=== PATIENT | female | born 1985 | race African-American/Black ===

== ENCOUNTER 2016-09-27 11:32 | Emergency (ER) | END 2016-09-27 14:31 | disposition left against medical advice (07) | LOC: MERGE 11:32 → EDSEX 11:32 → UCEAST 11:32 | DX: K08.89 Other specified disorders of teeth and supporting structures (principal) ==

== ENCOUNTER 2016-09-27 15:12 | Emergency (ER) | payer OTHER ==
[2016-09-27] MEDS ORDERED: Clindamycin CAP* 150 MG PO ONE (15:29)
--- NOTE | 2016-09-27 15:48 | ED ---
Throat Pain/Nasal Congestion - HPI Summary HPI Summary: Patient presents with left upper molar pain that began last night. She has had intermittent flares similar to this over the last 4 months that she has treated with salt water gargles and heating pads. She has an appointment with her dentist in four days to have the tooth extracted. She comes in today because she is worried it might be an infection. No fever, chill, N/V/D. She denies difficulty swallowing. - History of Current Complaint Time Seen by Provider: 09/27/16 15:18 Hx Obtained From: Patient Onset/Duration: Gradual Onset Severity: Moderate Associated Signs And Symptoms: Positive: Negative Cough: None - Allergies/Home Medications Allergies/Adverse Reactions: Allergies Allergy/AdvReac Type Severity Reaction Status Date / Time Acetaminophen [From Tylenol] Allergy Hives Verified 08/17/16 11:38 Ibuprofen Allergy Hives Verified 08/17/16 11:38 Naproxen [From Aleve] Allergy Swelling Verified 08/17/16 11:38 Penicillins Allergy Hives Verified 08/17/16 11:38 PMH/Surg Hx/FS Hx/Imm Hx Previously Healthy: Yes Endocrine/Hematology History: Denies: Hx Diabetes, Hx Thyroid Disease Cardiovascular History: Denies: Hx Hypertension, Hx Pacemaker/ICD Respiratory History: Denies: Hx Asthma, Hx Chronic Obstructive Pulmonary Disease (COPD) GI History: Denies: Hx Ulcer History: Denies: Hx Renal Disease Sensory History: Denies: Hx Hearing Aid Psychiatric History: Denies: Hx Panic Disorder Infectious Disease History: No Infectious Disease History: Denies: Hx Hepatitis, Hx Human Immunodeficiency Virus (HIV), Traveled Outside the [place] in Last 30 Days - Family History Known Family History: Positive: None - Social History Occupation: Employed Full-time Lives: With Family Alcohol Use: Occasionally Substance Use Type: Reports: Marijuana Substance Use Comment - Amount & Last Used: "NOT RECENTLY" Smoking Status (MU): Never Smoked Tobacco Review of Systems Negative: Fever Positive: Dental Pain. Negative: Sore Throat, Ear Ache All Other Systems Reviewed And Are Negative: Yes Physical Exam Triage Information Reviewed: Yes Vital Signs On Initial Exam: Initial Vitals Temp Pulse Resp BP Pulse Ox 99.2 F 120 20 112/69 98 09/27/16 15:14 09/27/16 15:14 09/27/16 15:14 09/27/16 15:14 09/27/16 15:14 Vital Signs Reviewed: Yes Appearance: Positive: Well-Appearing, Well-Nourished, Pain Distress - mild Skin: Positive: Warm, Skin Color Reflects Adequate Perfusion, Dry, Soft Head/Face: Positive: Normal Head/Face Inspection Eyes: Positive: EOMI, VANESA, Conjunctiva Clear ENT: Positive: Hearing grossly normal. Negative: Pharyngeal erythema, Nasal congestion, Tonsillar swelling, Tonsillar exudate Dental: Positive: Percussion Tenderness @. Negative: Dental Fracture @ Neck: Positive: Supple, Nontender, No Lymphadenopathy Respiratory/Lung Sounds: Positive: Breath Sounds Present Cardiovascular: Positive: RRR Neurological: Positive: Sensory/Motor Intact, Alert, Oriented to Person Place, Time, NV Bundle Intact Distally Psychiatric: Positive: Affect/Mood Appropriate AVPU Assessment: Alert Diagnostics - Vital Signs Vital Signs Temp Pulse Resp BP Pulse Ox 09/27/16 15:14 99.2 F 120 20 112/69 98 - Laboratory Lab Statement: Any lab studies that have been ordered have been reviewed, and results considered in the medical decision making process. EENT Course/Dx - Differential Diagnoses Differential Diagnoses: Dental Abscess, Dental Caries, Fractured Tooth, Gingivitis, David's Angina, Mastoiditis, Odontogenic Pain, Periodontic Abscess , Periodontic Disease, Post-Extraction Pain - Diagnoses Provider Diagnoses: Toothache Discharge - Discharge Plan Condition: Stable Disposition: HOME Prescriptions: Clindamycin Cap(NF) [Cleocin 300 mg Cap(NF)] 300 mg PO Q6H #27 cap Patient Education Materials: Toothache (ED) Referrals: Hermes Vaca MD [Primary Care Provider] - Additional Instructions: Please take the medication provided until it is completely gone and follow-up with your dentist as discussed on Saturday. Use tylenol and heat to control swelling and pain. Return to the emergency department if symptoms worsen.
[2016-09-27 16:24] VITALS: BP 109/67
== END 2016-09-27 16:23 | disposition home or self-care (01) ==
LOC: ED 15:12
DX: K08.89 Other specified disorders of teeth and supporting structures (principal)
CPT/HCPCS: 99282; A9270-GY

== ENCOUNTER 2016-11-11 14:46 | Day surgery (SDC) | payer OTHER ==
[2016-11-11 16:35] LABS: Hematocrit 35 % (35-47); Hemoglobin 11.5 g/dl (12.0-16.0); Mean Corpuscular HGB Conc 33 g/dl (31-36); Mean Corpuscular Hemoglobin 28 pg (27-31); Mean Corpuscular Volume 86 fL (80-97); Mean Platelet Volume 7 um3 (7.4-10.4); Red Blood Count 4.09 10^6/ul (4.0-5.4); Red Cell Distribution Width 14 % (10.5-15); White Blood Count 9.5 10^3/ul (3.5-10.8)
[2016-11-11 16:52] LABS: ALT 11 U/L (7-52); AST 14 U/L (13-39); Albumin 3.9 g/dL (3.2-5.2); Alkaline Phosphatase 48 U/L (34-104); BUN/Creatinine Ratio 8.9 (8-20); Blood Urea Nitrogen 7 mg/dL (6-24); C Reactive Protein < 1.00 mg/L (< 5.00); CO2 Carbon Dioxide 24 mmol/L (22-32); Calcium 9.4 mg/dL (8.6-10.3); EGFR African American 109.9 (>60); EGFR Non-African American 85.5 (>60); Globulin 3.2 g/dL (2-4); Glucose 89 mg/dL (70-100); Lipase 31 U/L (11.0-82.0); Potassium 3.8 mmol/L (3.5-5.0); Sodium 135 mmol/L (133-145); Total Protein 7.1 g/dL (6.4-8.9)
[2016-11-11 17:13] LABS: Anion Gap 6 mmol/L (2-11); Chloride 105 mmol/L (101-111)
--- NOTE | 2016-11-11 18:29 | RAD ---
INDICATION: , right adnexal pain. COMPARISON: There are no prior studies available for comparison. TECHNIQUE: Multiple real-time transvaginal images of the pelvis were obtained. FINDINGS: The uterus is normal in size and shape. No intrauterine gestational sac is seen. The endometrial echo measures 0.8 cm in thickness. The right ovary measured 3.0 x 2.6 x 3.0 cm. The left ovary measured 2.1 x 1.4 x 2.9 cm. There is a small 1.8 x 1.4 cm complex cyst present within the right ovary. In addition adjacent to the right ovary there is an ill-defined mass measuring 2.5 x 4.3 x 1.8 cm possibly representing an ectopic with hemorrhage. No heartbeat is seen. There is a small amount of complex free intraperitoneal fluid around the uterus. The results of this exam were called to Dr. Wisdom. IMPRESSION: NO INTRAUTERINE GESTATIONAL SAC IS SEEN. THERE IS A HYPERECHOIC MASS IN THE RIGHT ADNEXA ADJACENT TO THE RIGHT OVARY SUSPICIOUS FOR AN ECTOPIC WITH HEMORRHAGE.
[2016-11-11 19:21] LABS: Urine Bacteria Absent (Absent); Urine Bilirubin Negative (Negative); Urine Glucose Negative (Negative); Urine Nitrite Negative (Negative)
[2016-11-11] MEDS ORDERED: Bupivacaine 0.25% SDV* 30 ML ONE (19:27)
[2016-11-11] MEDS ORDERED: Propofol* 10 MG/ML 20 ML BTL IV PUSH ONE (19:33)
[2016-11-11] MEDS ORDERED: fentaNYL* 50 MCG/ML 2 ML VIAL (100 MCG VIAL) ONE ×4 (19:33→21:42)
[2016-11-11] MEDS ORDERED: Lidocaine 2% PF* 5 ML VIAL ONE (19:33)
[2016-11-11] MEDS ORDERED: oxyCODONE TAB* 5 MG TAB PO PRN (19:41)
[2016-11-11] MEDS ORDERED: PROCHLORPERAZINE INJ 5 MG/ML 2 ML VIAL IV PRN (19:41)
[2016-11-11] MEDS ORDERED: fentaNYL* 50 MCG/ML 2 ML VIAL (100 MCG VIAL) IV PRN (19:41)
[2016-11-11] MEDS ORDERED: Metoclopramide IV* 5 MG/ML 2 ML VIAL ONE (19:44)
[2016-11-11] MEDS ORDERED: Sodium Citrate/Citric Acid* 15 ML UDC ONE (19:45)
--- NOTE | 2016-11-11 20:11 | HP ---
H&P (Free Text) History and Physical: CC: RLQ pain HPI: Pt c/o RLQ pain starting this afternoon. It became about 8/10 at it's worst point. After the sono in the ED she began having some spotting but none previously. She had a + test at home. Her LMP was about 8wks ago but her cycles have been very irregular. She was not specifically trying to get but was happy with the fact that she was . Meds: Allergies: recently developed allergy to acetaminophen and ibuprofen in the past year - both cause hives and swelling lips. She had been able to take them prior to about the past year. Also allergic to penicillins. PMH: allergies as above, PSH: endoscopy with polyp removal GynHx: with 1 prior FT uncomplicated , 1 prior ectopic medically treated (uncertain which side), 1 SAB, 2TOP SocHx: Denies tobacco and alcohol use, occ Marijuana use but not recently. Exam VSS Gen: NAD CV: RRR Abd: soft, moderately tender RLQ, nondistended Ext: neg edema Sono: suspected right ruptured ectopic Labs: O+, ab neg. CBC stable with prior one. Assessment: with a suspected ruptured right ectopic . Vitals currently stable. Pt with 1 prior ectopic treated with Methotrexate in 2011. Plan: Laparoscopic removal of ectopic , possible right salpingectomy, possible laparotomy, surgery as indicated. Discussed recovery with pt: no heavy lifting x4wks. 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
[2016-11-11] MEDS ORDERED: Dexamethasone IV* 4 MG/ML 1 ML (4 MG) ONE (20:25)
[2016-11-11] MEDS ORDERED: Ondansetron INJ* 2 MG/ML VIAL ONE (20:43)
[2016-11-11] MEDS ORDERED: Phenylephrine IV* 40 MCG/ML 10 ML SYRINGE ONE (20:57)
[2016-11-11] MEDS ORDERED: oxyCODONE TAB* 5 MG TAB ONE (22:19)
[2016-11-11 22:42] VITALS: BP 128/80
--- NOTE | 2016-11-12 14:57 | OP ---
DATE OF OPERATION: 11/11/16 [facility] DATE OF : 87 SURGEON: Gloria Rene MD SURVEILLANCE SENSOR OFFICER: Rush Castanon MD ANESTHESIOLOGIST: Migue Ye MD ANESTHESIA: General endotracheal anesthesia. PRE-OP DIAGNOSES: Right ectopic , hemoperitoneum. POST-OP DIAGNOSES: Ruptured right ectopic , hemoperitoneum. OPERATIVE PROCEDURE: Laparoscopic right salpingo-oophorectomy, evacuation of hemoperitoneum. ESTIMATED BLOOD LOSS: 200 to 300 mL. SPECIMEN: Right tube and ectopic . FLUIDS: Crystalloid. DRAINS: Morris catheter with 200 mL of clear urine removed at the end of the procedure. FINDINGS: Dilated edematous right tube with blood products extruding from the end. DESCRIPTION OF PROCEDURE: After informed consent was signed, the patient was taken to the operating room where she was given general anesthesia that was found to be adequate. She was prepped and draped in the dorsal lithotomy position in Artis stirrups. A time-out was performed. A speculum was then placed into the vagina to expose the cervix and the anterior lip of the cervix was grasped with the tenaculum and the Hulka manipulator was inserted. The speculum was removed, gloves were changed, and attention was turned to the abdomen. The infraumbilical folds were grasped with an Allis clamp and injected with Marcaine with epinephrine. A 10-mm incision was then made with a scalpel and carried down to the underlying layer of fascia. The fascia was grasped with Toney clamps and incised. This incision was then extended bluntly. The trocar was then inserted and entrance to the abdominal cavity was confirmed. The abdomen was then insufflated and on inspection, the previously mentioned findings were noted. Two lateral ports were then placed, each of 5 mm. Marcaine with epinephrine was injected first followed by a 5-mm incision with the scalpel. The trocar was then entered bluntly with direct visualization. The right tube was then grasped and a LigaSure device was used to clamp, cauterize, and cut through the mesosalpinx to release the tube. The proximal end of the tube was then clamped, cauterized, and cut with the LigaSure device. The blood in the abdomen was also suctioned with suction irrigation. The camera was switched to a lateral port and a 10-mm EndoCatch bag was then inserted through the umbilical port. The right tube and ectopic was placed into the EndoCatch bag and removed from the abdominal cavity. Further irrigation and suctioning of the abdomen removed all the old blood and good hemostasis was noted. The fascial incision was closed with 0 Vicryl in a figure-of-8 suture. The skin was then closed with 4-0 Vicryl in a subcuticular fashion. Mastisol and Steri-Strips were placed. The patient was cleaned, placed back into supine position, awakened from anesthesia, and moved to the recovery room in stable condition. All counts were correct. CC: Rush Castanon MD* [id number]/[facility] #: [id number] MTDNaya
== END 2016-11-11 19:37 | disposition home or self-care (01) ==
LOC: ED 14:46 → OR 19:37
PROVIDERS: ATTEND Obstetrics & Gynecology
DX: O00.10 Tubal pregnancy without intrauterine pregnancy (principal); K66.1 Hemoperitoneum; R10.31 Right lower quadrant pain
CPT/HCPCS: 36415; 76817; 80053; 81003; 81015; 83605; 83690; 84702; 85025; 86140; 86850; 86900; 86901; 87077; 87086; 88305; 96374; 96375; 99283; A9270-GY; J1100; J2405; J2704; J3010

== ENCOUNTER 2017-05-02 19:09 | Emergency (ER) | payer SELFPAY ==
[2017-05-02] MEDS ORDERED: Ondansetron ODT TAB* 4 MG PO ONE ×2 (20:27→21:01)
[2017-05-02 20:28] VITALS: BP 121/82
--- NOTE | 2017-05-02 20:29 | UC ---
Headache HPI - HPI Summary HPI Summary: Headache for 2 days nausea today with vomiting---did have a fever a few days ago ---cannot take pain med due to allergies - History Of Current Complaint Chief Complaint: UCHeadache Stated Complaint: HEADACHE Time Seen by Provider: 05/02/17 20:04 Hx Obtained From: Patient Hx Last Menstrual Period: 04/13/17 ?: No Onset/Duration: Sudden Onset, Lasting Days - 2, Still Present Onset Of Symptoms: Gradual Timing: Constant Character: Throbbing Location of Headache: Diffuse Aggravating Factor: Nothing Allevating Factors: Nothing Associated Signs And Symptoms: Positive: Negative - Allergies/Home Medications Allergies/Adverse Reactions: Allergies Allergy/AdvReac Type Severity Reaction Status Date / Time Acetaminophen [From Tylenol] Allergy Hives Verified 05/02/17 19:15 Ibuprofen Allergy Hives Verified 05/02/17 19:15 Naproxen [From Aleve] Allergy Swelling Verified 05/02/17 19:15 Penicillins Allergy Hives Verified 05/02/17 19:15 PMH/Surg Hx/FS Hx/Imm Hx Previously Healthy: Yes - Surgical History Surgical History: None - Family History Known Family History: Positive: None - Social History Occupation: Employed Full-time Lives: With Family Alcohol Use: None Substance Use Type: None Substance Use Comment - Amount & Last Used: "NOT RECENTLY" Smoking Status (MU): Never Smoked Tobacco Have You Smoked in the Last Year: No Review of Systems Constitutional: Negative Skin: Negative Eyes: Negative ENT: Negative Respiratory: Negative Cardiovascular: Negative Gastrointestinal: Abdominal Pain - diffuse, Vomiting Genitourinary: Negative Motor: Negative Neurovascular: Negative Musculoskeletal: Negative Neurological: Headache Psychological: Negative Is Patient Immunocompromised?: No All Other Systems Reviewed And Are Negative: Yes Physical Exam Triage Information Reviewed: Yes Appearance: Well-Appearing, No Pain Distress, Well-Nourished Vital Signs: Initial Vital Signs Temp 97.8 F 05/02/17 19:12 Pulse 102 05/02/17 19:12 Resp 12 05/02/17 19:12 Pulse Ox 100 05/02/17 19:12 Vital Signs Reviewed: Yes Eye Exam: Normal Eyes: Positive: Conjunctiva Clear ENT Exam: Normal ENT: Positive: Normal ENT inspection, Hearing grossly normal, Pharynx normal, TMs normal. Negative: Nasal congestion, Nasal drainage, Trismus, Muffled/ hoarse voice Dental Exam: Normal Neck exam: Normal Neck: Positive: Supple, Nontender, No Lymphadenopathy Respiratory Exam: Normal Respiratory: Positive: Chest non-tender, Lungs clear, Normal breath sounds, No respiratory distress Cardiovascular Exam: Normal Cardiovascular: Positive: RRR, No Murmur, Pulses Normal, Brisk Capillary Refill Abdominal Exam: Normal Abdomen Description: Positive: No Organomegaly, Soft. Negative: CVA Tenderness (R), CVA Tenderness (L) Bowel Sounds: Positive: Present Musculoskeletal Exam: Normal Musculoskeletal: Positive: Strength Intact, ROM Intact, No Edema Neurological Exam: Normal Neurological: Positive: Alert, Muscle Tone Normal Psychological Exam: Normal Skin Exam: Normal Re-Evaluation - Re-Evaluation First Eval Change: Improved - Some relief with rest and zofran--keeping down clear liquids Headache Course/Dx - Course Course Of Treatment: advance diet slowly, zofran, follow with PCP to emergency department for worsening or unresolving symptoms - Differential Dx/Diagnosis Differential Diagnosis/HQI/PQRI: Sinus Headache, Temporal Arteritis, Tension Headache, Viral Syndrome Provider Diagnoses: Acute nausea and vomiting Discharge - Discharge Plan Condition: Stable Disposition: HOME Prescriptions: Ondansetron ODT TAB* [Zofran 4 MG Odt TAB*] 4 mg PO Q6H PRN #10 tab.odt PRN Reason: Nausea/Vomiting Patient Education Materials: Acute Nausea and Vomiting (ED) Forms: *Work Release Referrals: Hermes Vaca MD [Primary Care Provider] - If Needed
== END 2017-05-02 21:10 | disposition home or self-care (01) ==
LOC: UCEAST 19:09
DX: R11.2 Nausea with vomiting, unspecified (principal); Z32.02 Encounter for pregnancy test, result negative; Z88.6 Allergy status to analgesic agent; Z88.0 Allergy status to penicillin
CPT/HCPCS: 81003; 84702; 99212; A9270-GY; G0463

== ENCOUNTER 2017-09-17 05:20 | Emergency (ER) | payer BC ==
[2017-09-17 07:50] VITALS: BP 0/0
--- NOTE | 2017-09-18 17:57 | ED ---
Fuad Torrez Angela, scribed for Shiv Goodwin MD on 09/17/17 at 0733 . Complex/Multi-Sys Presentation - HPI Summary HPI Summary: This pt is a 32 y/o female presenting to [facility] c/o sore throat x3 days. Pt reports she took 3 old antibiotics (Clindamycin) over the past 3 days. She states the last one she took was last night. She notes that her she might have tested negative for strep due to taking these antibiotics. Pt reports her throat throat is currently mild than at onset. Pt denies any fever. She denies any PMHx. - History Of Current Complaint Chief Complaint: EDThroatPain Time Seen by Provider: 09/17/17 07:17 Hx Obtained From: Patient Onset/Duration: Lasting Days, Still Present Timing: Days Severity Initially: Moderate Location: Pain At: - throat Aggravating Factor(s): nothing Alleviating Factor(s): nothing Associated Signs And Symptoms: Positive: Other - Sore throat. Negative: Fever - Allergies/Home Medications Allergies/Adverse Reactions: Allergies Allergy/AdvReac Type Severity Reaction Status Date / Time MS Acetaminophen Allergy Hives Verified 09/17/17 05:29 [From Tylenol] MS Ibuprofen [Ibuprofen] Allergy Hives Verified 09/17/17 05:29 MS Naproxen [From Aleve] Allergy Swelling Verified 09/17/17 05:29 MS Penicillins [Penicillins] Allergy Hives Verified 09/17/17 05:29 PMH/Surg Hx/FS Hx/Imm Hx Endocrine/Hematology History: Denies: Hx Diabetes, Hx Thyroid Disease Cardiovascular History: Denies: Hx Hypertension, Hx Pacemaker/ICD Respiratory History: Denies: Hx Asthma, Hx Chronic Obstructive Pulmonary Disease (COPD) GI History: Denies: Hx Ulcer History: Denies: Hx Renal Disease Sensory History: Denies: Hx Hearing Aid Psychiatric History: Denies: Hx Panic Disorder Infectious Disease History: No Infectious Disease History: Denies: Hx Hepatitis, Hx Human Immunodeficiency Virus (HIV), Traveled Outside the [place] in Last 30 Days - Family History Family History: Mother: Lupus, leukemia - Social History Alcohol Use: Occasionally Substance Use Type: Reports: Marijuana Substance Use Comment - Amount & Last Used: "NOT RECENTLY" Smoking Status (MU): Never Smoked Tobacco Have You Smoked in the Last Year: No Review of Systems Negative: Fever, Chills Positive: Sore Throat All Other Systems Reviewed And Are Negative: Yes Physical Exam - Summary Physical Exam Summary: VITAL SIGNS: Reviewed. GENERAL: Patient is a well-developed and nourished female who is lying comfortable in the stretcher. Patient is not in any acute respiratory distress. HEAD AND FACE: No signs of trauma. No ecchymosis, hematomas or skull depressions. No sinus tenderness. EYES: PERRLA, EOMI x 2, No injected conjunctiva, no nystagmus. EARS: Hearing grossly intact. Ear canals and tympanic membranes are within normal limits. MOUTH: Erythema in the throat. NECK: Supple, trachea is midline, no adenopathy, no JVD, no carotid bruit, no c- spine tenderness, neck with full ROM. CHEST: Symmetric, no tenderness at palpation LUNGS: Clear to auscultation bilaterally. No wheezing or crackles. CVS: Regular rate and rhythm, S1 and S2 present, no murmurs or gallops appreciated. ABDOMEN: Soft, non-tender. No signs of distention. No rebound no guarding, and no masses palpated. Bowel sounds are normal. EXTREMITIES: FROM in all major joints, no edema, no cyanosis or clubbing. NEURO: Alert and oriented x 3. No acute neurological deficits. Speech is normal and follows commands. SKIN: Dry and warm Triage Information Reviewed: Yes Vital Signs On Initial Exam: Initial Vitals Temp Pulse Resp BP Pulse Ox 97.7 F 77 18 115/77 97 09/17/17 05:26 09/17/17 05:26 09/17/17 05:26 09/17/17 05:26 09/17/17 05:26 Vital Signs Reviewed: Yes Diagnostics - Vital Signs Vital Signs Temp Pulse Resp BP Pulse Ox 09/17/17 05:26 97.7 F 77 18 115/77 97 - Laboratory Lab Results: Lab Results 09/17/17 Range/Units 06:22 Group A Strep Rapid Negative (Negative) Lab Statement: Any lab studies that have been ordered have been reviewed, and results considered in the medical decision making process. Complex Multi-Symp Course/Dx Assessment/Plan: This pt is a 32 y/o female presenting to [facility] c/o sore throat x3 days. Pt reports she took 3 old antibiotics (Clindamycin) over the past 3 days. She states the last one she took was last night. She notes that her she might have tested negative for strep due to taking these antibiotics. Pt reports her throat throat is currently mild than at onset. Pt denies any fever. She denies any PMHx. Test results shows rapid strep is negative. However the pt took 3 clindamycin tablets which may have impaired the testing. Since in the household there is a positive strep, I will give the pt a prescription for azithromycin if her sore throat symptoms worsen. She will be discharged to home with follow up from her PCP. Pt is hemodynamically stable, alert and oriented x3. - Diagnoses Provider Diagnoses: Pharyngitis Discharge - Discharge Plan Condition: Stable Disposition: HOME Prescriptions: Azithromyxin GRACE (NF) [Z-Grace (Zithromax) 250 mg tabs #6] 2 tab PO .TODAY, THEN 1 DAILY #6 tab Patient Education Materials: Pharyngitis (ED) Forms: *Work Release Referrals: [facility] PHYSICIAN REFERRAL [Outside] - 1 Week No Primary Care Phys,NOPCP [Primary Care Provider] - Additional Instructions: Please follow up with your primary care provider. RETURN TO THE ED FOR ANY WORSENING SYMPTOMS. The documentation as recorded by the Fuad vazquez Angela accurately reflects the service I personally performed and the decisions made by me, Shiv Goodwin MD.
== END 2017-09-17 07:48 | disposition home or self-care (01) ==
LOC: ED 05:20
DX: J02.9 Acute pharyngitis, unspecified (principal)
CPT/HCPCS: 87651; 99282

== ENCOUNTER 2018-01-26 16:09 | Emergency (ER) | payer SELFPAY ==
[2018-01-26 16:18] VITALS: BP 125/85
--- NOTE | 2018-01-26 16:36 | UC ---
Eye Complaint HPI - HPI Summary HPI Summary: Developed pain, swelling, redness in R upper eyelid about 2 days ago. Has tried some warm packs without relief. 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 - History of Current Complaint Chief Complaint: UCEye Stated Complaint: EYE COMPLAINT Time Seen by Provider: 01/26/18 16:22 Hx Obtained From: Patient Hx Last Menstrual Period: 01/13/18 ?: No Onset/Duration: Gradual Onset, Lasting Days Timing: Constant Severity Initially: Mild Severity Currently: Moderate Pain Intensity: 9 Location of Injury: Eye Lid (upper) Character: Dull Aggravating Factor(s): Blinking Alleviating Factor(s): Darkness Associated Signs And Symptoms: Positive: Drainage (Clear) - Allergies/Home Medications Allergies/Adverse Reactions: Allergies Allergy/AdvReac Type Severity Reaction Status Date / Time acetaminophen [From Tylenol] Allergy Intermediate Hives Verified 01/26/18 16:21 ibuprofen Allergy Intermediate Hives Verified 01/26/18 16:21 naproxen Allergy Intermediate Swelling Verified 01/26/18 16:21 Penicillins Allergy Intermediate Hives Verified 01/26/18 16:21 PMH/Surg Hx/FS Hx/Imm Hx - Additional Past Medical History Additional PMH: vitiligo, ectopic Previously Healthy: Yes - Surgical History Surgical History: Yes Surgery Procedure, Year, and Place: ectopic - Family History Known Family History: Positive: Other Family History: Mother: Lupus, leukemia - Social History Occupation: Employed Full-time Alcohol Use: Occasionally Substance Use Type: Marijuana Substance Use Comment - Amount & Last Used: "NOT RECENTLY" Smoking Status (MU): Never Smoked Tobacco Have You Smoked in the Last Year: No Review of Systems Constitutional: Negative Skin: Other - redness, swelling R upper lid Eyes: Negative ENT: Negative Respiratory: Negative Cardiovascular: Negative Gastrointestinal: Negative Genitourinary: Negative Motor: Negative Neurovascular: Negative Musculoskeletal: Negative Neurological: Negative Psychological: Negative Is Patient Immunocompromised?: No All Other Systems Reviewed And Are Negative: Yes Physical Exam Triage Information Reviewed: Yes Appearance: Well-Appearing, Well-Nourished, Pain Distress - mild Vital Signs: Initial Vital Signs Temp 98.1 F 01/26/18 16:14 Pulse 78 01/26/18 16:14 Resp 15 01/26/18 16:14 BP 125/85 06/17/18 16:14 Pulse Ox 98 01/26/18 16:14 Vital Signs Reviewed: Yes Eye Exam: Other - PERRL, EOMI, clear drainage from R eye, notable swelling and redness of upper lid. Visible stye pointing at margin of R upper lid. Eyes: Positive: Conjunctiva Clear ENT Exam: Normal ENT: Positive: Normal ENT inspection, Hearing grossly normal, Pharynx normal, TMs normal Dental Exam: Normal Neck exam: Normal Neck: Positive: Supple, Nontender, No Lymphadenopathy Respiratory Exam: Normal Respiratory: Positive: Chest non-tender, Lungs clear, Normal breath sounds, No respiratory distress, No accessory muscle use Cardiovascular Exam: Normal Cardiovascular: Positive: RRR, No Murmur Neurological Exam: Normal Neurological: Positive: Alert Psychological Exam: Normal Skin Exam: Other - R upper eye stye Eye Complaint Course/Dx - Course Course Of Treatment: Pt very much wants oral antibiotics since her symptoms haven't started improving yet, we discussed the pathophysiology of abscess formation, that her infection appears totally local at this point and that drainage is the most important part of recovery. - Differential Dx/Diagnosis Provider Diagnoses: R eye upper eyelid stye Discharge - Sign-Out/Discharge Documenting (check all that apply): Discharge/Admit/Transfer - Discharge Plan Condition: Stable Disposition: HOME Prescriptions: Erythromycin OPTH OINT* [Erythromycin 0.5% OPTH OINT*] 1 applic RIGHT EYE TID # 1 ophth.oint Patient Education Materials: Mark (ED) Forms: *Work Release Referrals: No Primary Care Phys,NOPCP [Primary Care Provider] - Additional Instructions: Apply frequent hot compresses -- as hot as you can stand as frequently as you can stand. You may need to warm up your cloth mcfp through a compress as they tend to cool off quickly. If you develop increasing pain, fever, or visual changes, or if redness starts spreading far beyond the upper eyelid, please return here or go to the emergency department. - Billing Disposition and Condition Condition: STABLE Disposition: Home
== END 2018-01-26 16:45 | disposition home or self-care (01) ==
LOC: UCEAST 16:09
DX: H00.021 Hordeolum internum right upper eyelid (principal); Z88.6 Allergy status to analgesic agent; Z88.0 Allergy status to penicillin; Z80.6 Family history of leukemia; Z83.49 Family history of other endocrine, nutritional and metabolic diseases
CPT/HCPCS: 99212; G0463

== ENCOUNTER 2018-05-10 09:40 | Emergency (ER) | payer SELFPAY ==
[2018-05-10] MEDS ORDERED: Clotrimazole/Betamethasone CREAM* 15 GM TOPICAL ONE (10:29)
[2018-05-10 11:03] VITALS: BP 113/68
--- NOTE | 2018-05-10 16:39 | ED ---
Skin Complaint - HPI Summary HPI Summary: Patient is a 33-year-old female presenting to the ED with a complaint of "rash" to the left side body and mid back starting 2 days ago. She states the rash appeared 2 days after trying on clothes at a department store as well as 4 days after a trip to the [employer] where she was in a pool with other individuals. She denies any new animals or new environment. She has never had this rash before. She describes the rash as circular, pruritic but not painful. - History of Current Complaint Chief Complaint: EDRashSkinAbscess Time Seen by Provider: 05/10/18 09:47 Stated Complaint: RASH ON BACK AND SRTOMACH Hx Obtained From: Patient Hx Last Menstrual Period: 01/13/18 Onset/Duration: Started Hours Ago, Started Days Ago Skin Exposure Onset/Duration: Hours Ago, Days Ago Timing: Constant Onset Severity: Moderate Current Severity: Moderate Pain Intensity: 0 Pain Scale Used: 0-10 Numeric Skin Location: Discrete Character: Pruritus, Redness, Raised Aggravating Symptom(s): Nothing Associated Signs & Symptoms: Negative - Allergy/Home Medications Allergies/Adverse Reactions: Allergies Allergy/AdvReac Type Severity Reaction Status Date / Time acetaminophen [From Tylenol] Allergy Intermediate Hives Verified 05/10/18 09:45 ibuprofen Allergy Intermediate Hives Verified 05/10/18 09:45 naproxen Allergy Intermediate Swelling Verified 05/10/18 09:45 Penicillins Allergy Intermediate Hives Verified 05/10/18 09:45 Home Medications: Home Medications NK [No Home Medications Reported] 05/10/18 [History Confirmed 05/10/18] PMH/Surg Hx/FS Hx/Imm Hx Previously Healthy: Yes Endocrine/Hematology History: Denies: Hx Diabetes, Hx Thyroid Disease Cardiovascular History: Denies: Hx Hypertension, Hx Pacemaker/ICD Respiratory History: Denies: Hx Asthma, Hx Chronic Obstructive Pulmonary Disease (COPD) GI History: Denies: Hx Ulcer History: Denies: Hx Renal Disease Sensory History: Denies: Hx Hearing Aid Psychiatric History: Denies: Hx Panic Disorder - Surgical History Surgery Procedure, Year, and Place: ectopic - Immunization History Hx Pertussis Vaccination: No Immunizations Up to Date: Yes Infectious Disease History: No Infectious Disease History: Denies: Hx Hepatitis, Hx Human Immunodeficiency Virus (HIV), Traveled Outside the [place] in Last 30 Days - Family History Known Family History: Positive: None, Other Family History: Mother: Lupus, leukemia - Social History Occupation: Employed Full-time Lives: With Family Alcohol Use: Occasionally Hx Substance Use: Yes Substance Use Type: Reports: Marijuana Substance Use Comment - Amount & Last Used: "not in the last 3 weeks though" Hx Tobacco Use: Yes Smoking Status (MU): Current Some Day Smoker Have You Smoked in the Last Year: No Review of Systems Constitutional: Negative Negative: Fever, Chills, Fatigue, Skin Diaphoresis Negative: Palpitations, Chest Pain Negative: Shortness Of Breath, Cough Genitourinary: Negative Positive: no symptoms reported, see HPI Positive: Other - annular, slightly raised erythematous edge lesions with salmon center with scaling plaque Neurological: Negative All Other Systems Reviewed And Are Negative: Yes Physical Exam Triage Information Reviewed: Yes Vital Signs On Initial Exam: Initial Vitals Temp Pulse Resp BP Pulse Ox 98.0 F 79 16 108/84 100 05/10/18 09:43 05/10/18 09:43 05/10/18 09:43 05/10/18 09:43 05/10/18 09:43 Vital Signs Reviewed: Yes Appearance: Positive: Well-Appearing, Well-Nourished Skin: Positive: Warm, Skin Color Reflects Adequate Perfusion, Other - annular, slightly raised erythematous edge lesions with salmon center with scaling plaque Head/Face: Positive: Normal Head/Face Inspection Eyes: Positive: EOMI, VANESA, Conjunctiva Clear Neck: Positive: Supple Respiratory/Lung Sounds: Positive: Clear to Auscultation, Breath Sounds Present Cardiovascular: Positive: RRR, Pulses are Symmetrical in both Upper and Lower Extremities Bowel Sounds: Positive: Present Musculoskeletal: Positive: Normal, Strength/ROM Intact Neurological: Positive: Speech Normal Psychiatric: Positive: Normal, Affect/Mood Appropriate AVPU Assessment: Alert Diagnostics - Vital Signs Vital Signs Temp Pulse Resp BP Pulse Ox 05/10/18 11:02 99.3 F 63 16 113/68 99 05/10/18 09:43 98.0 F 79 16 108/84 100 - Laboratory Lab Statement: Any lab studies that have been ordered have been reviewed, and results considered in the medical decision making process. Course/Dx - Course Course Of Treatment: On physical examination, there is an annular, slightly scaling raised edge erythematous lesion to the left side body with a salmon colored center also with 2 similar lesions to the back appearing the same. He' s appear to be tinea corporis or ringworm. She is given Lotrisone cream to be used twice daily for relief. - Diagnoses Provider Diagnoses: Ringworm of body Discharge - Sign-Out/Discharge Documenting (check all that apply): Patient Departure - Discharge Plan Condition: Stable Disposition: HOME Patient Education Materials: Tinea Corporis (ED) Referrals: No Primary Care Phys,NOPCP [Primary Care Provider] - Additional Instructions: Apply cream to affected areas 3x daily x 3 days then twice daily until area is diminished - Billing Disposition and Condition Condition: STABLE Disposition: Home
== END 2018-05-10 11:02 | disposition home or self-care (01) ==
LOC: ED 09:40
DX: B35.4 Tinea corporis (principal); F17.200 Nicotine dependence, unspecified, uncomplicated; Z88.0 Allergy status to penicillin; Z88.6 Allergy status to analgesic agent
CPT/HCPCS: 99282; A9270-GY

== ENCOUNTER 2018-05-12 07:54 | Emergency (ER) | payer SELFPAY ==
--- NOTE | 2018-05-12 08:07 | ED ---
Throat Pain/Nasal Congestion - HPI Summary HPI Summary: A 33 y/o F presents to ED with c/o swelling and tenderness to R-side of jaw, at her bridge, onset a few days ago and worsening. She believes it might be the start of an abscess. Pt had the bridge done in 2012 in [place], [place]. Allergies discussed. Denies PMHx. - History of Current Complaint Chief Complaint: EDDentalPain Time Seen by Provider: 05/12/18 08:04 Hx Obtained From: Patient Onset/Duration: Gradual Onset, Lasting Days, Still Present Severity: Moderate - 4/10 pain Associated Signs And Symptoms: Positive: Negative Cough: None - Allergies/Home Medications Allergies/Adverse Reactions: Allergies Allergy/AdvReac Type Severity Reaction Status Date / Time acetaminophen [From Tylenol] Allergy Intermediate Hives Verified 05/12/18 07:59 ibuprofen Allergy Intermediate Hives Verified 05/12/18 07:59 naproxen Allergy Intermediate Swelling Verified 05/12/18 07:59 Penicillins Allergy Intermediate Hives Verified 05/12/18 07:59 PMH/Surg Hx/FS Hx/Imm Hx Previously Healthy: Yes Endocrine/Hematology History: Denies: Hx Diabetes, Hx Thyroid Disease Cardiovascular History: Denies: Hx Hypertension, Hx Pacemaker/ICD Respiratory History: Denies: Hx Asthma, Hx Chronic Obstructive Pulmonary Disease (COPD) GI History: Denies: Hx Ulcer History: Denies: Hx Renal Disease Sensory History: Denies: Hx Hearing Aid Psychiatric History: Denies: Hx Panic Disorder - Surgical History Surgery Procedure, Year, and Place: ectopic Infectious Disease History: No Infectious Disease History: Denies: Hx Hepatitis, Hx Human Immunodeficiency Virus (HIV), Traveled Outside the US in Last 30 Days - Family History Known Family History: Positive: None, Other Family History: Mother: Lupus, leukemia - Social History Occupation: Unemployed - OTHER Lives: Alone Alcohol Use: Occasionally Hx Substance Use: Yes Substance Use Type: Reports: Marijuana Substance Use Comment - Amount & Last Used: "not in the last 3 weeks though" Hx Tobacco Use: Yes Smoking Status (MU): Current Some Day Smoker Have You Smoked in the Last Year: No Review of Systems Negative: Fever Positive: Dental Pain - edema and tenderness Negative: Cough All Other Systems Reviewed And Are Negative: Yes Physical Exam - Summary Physical Exam Summary: VITAL SIGNS: Reviewed. GENERAL: Patient is a well-developed and nourished FEMALE who is lying comfortable in the stretcher. Patient is not in any acute respiratory distress. HEAD AND FACE: No signs of trauma. No ecchymosis, hematomas or skull depressions. No sinus tenderness. EYES: PERRLA, EOMI x 2, No injected conjunctiva, no nystagmus. EARS: Hearing grossly intact. Ear canals and tympanic membranes are within normal limits. MOUTH: Erythema and edema in lower gum at tooth 32. No trismus. No tongue nor lip swelling. NECK: Supple, trachea is midline, no adenopathy, no JVD, no carotid bruit, no c- spine tenderness, neck with full ROM. CHEST: Symmetric, no tenderness at palpation LUNGS: Clear to auscultation bilaterally. No wheezing or crackles. CVS: Regular rate and rhythm, S1 and S2 present, no murmurs or gallops appreciated. ABDOMEN: Soft, non-tender. No signs of distention. No rebound, no guarding, and no masses palpated. Bowel sounds are normal. EXTREMITIES: FROM in all major joints, no edema, no cyanosis or clubbing. NEURO: Alert and oriented x 3. No acute neurological deficits. Speech is normal and follows commands. SKIN: Dry and warm Triage Information Reviewed: Yes Vital Signs On Initial Exam: Initial Vitals Temp Pulse Resp BP Pulse Ox 97.7 F 88 16 127/77 100 05/12/18 07:55 05/12/18 07:55 05/12/18 07:55 05/12/18 07:55 05/12/18 07:55 Vital Signs Reviewed: Yes Diagnostics - Vital Signs Vital Signs Temp Pulse Resp BP Pulse Ox 05/12/18 07:55 97.7 F 88 16 127/77 100 - Laboratory Lab Statement: Any lab studies that have been ordered have been reviewed, and results considered in the medical decision making process. EENT Course/Dx - Course Assessment/Plan: A 33 y/o F presents to ED with c/o swelling and tenderness to R -side of jaw, at her bridge, onset a few days ago and worsening. She believes it might be the start of an abscess. Pt had the bridge done in 2012 in [place]. Allergies discussed. Denies PMHx. It seems that the patient has a dental infection. The patient was given clindamycin and Toradol for the pain. The patient is allergic to penicillins. At this point I recommended for the patient to follow up with the dentist as soon as possible. The patient understands and agrees. She doesnt have any trismus, she doesnt have any swelling of the tongue or lips. Patient is hemodynamically stable alert and oriented 3. Patient is discharged home with follow-up with PCP and dentist. - Differential Diagnoses Differential Diagnoses: Dental Abscess, Dental Caries, Gingivitis, David's Angina - Diagnoses Provider Diagnoses: Pain, dental Discharge - Sign-Out/Discharge Documenting (check all that apply): Patient Departure - DC - Discharge Plan Condition: Stable Disposition: HOME Prescriptions: Clindamycin Cap(NF) [Clindamycin Cap 300 mg Cap(NF)] 300 mg PO TID #30 cap Ibuprofen TAB* [Motrin TAB* 600 MG] 600 mg PO Q8H PRN #30 tab PRN Reason: Pain Patient Education Materials: Clindamycin (By mouth), Ibuprofen (By mouth), Dental Abscess (ED) Referrals: [facility] [Outside] [facility] [Outside] Additional Instructions: As we discussed, follow-up with a dentist today. Additionally, establish and follow-up with a primary care provider in 2-3 days. Please return to the Emergency Room if you experience new or worsening symptoms. - Billing Disposition and Condition Condition: STABLE Disposition: Home - Attestation Statements Document Initiated by Ryan: Yes Documenting Scribe: Fabio Gutierrez Provider For Whom Ryan is Documenting (Include Credential): Dr. Shiv Goodwin MD Scribe Attestation: I, Fabio Gutierrez, scribed for Dr. Shiv Goodwin MD on 05/13/18 at 0814. Scribe Documentation Reviewed: Yes Provider Attestation: The documentation as recorded by the Fabio vazquez accurately reflects the service I personally performed and the decisions made by me, Dr. Shiv Goodwin MD
[2018-05-12] MEDS ORDERED: Ketorolac INJ* 60 MG/2 ML VIAL IM ONE (08:10)
[2018-05-12] MEDS ORDERED: Clindamycin CAP* 150 MG PO ONE (08:10)
[2018-05-12 09:08] VITALS: BP 112/71
== END 2018-05-12 08:37 | disposition home or self-care (01) ==
LOC: ED 07:54
DX: K08.89 Other specified disorders of teeth and supporting structures (principal); F17.200 Nicotine dependence, unspecified, uncomplicated; Z88.0 Allergy status to penicillin
CPT/HCPCS: 99281; A9270-GY; J1885

== ENCOUNTER 2018-06-23 15:12 | Emergency (ER) | payer SELFPAY ==
--- NOTE | 2018-06-23 15:58 | ED ---
- HPI Summary HPI Summary: 33 year old female presents with abdominal pain for the past couple days. She states that pain is intermittent and located on her left side. She states that she has history of 2 ectopic pregnancies. She states last one occurred last year requiring surgery. the other one was manage medically. She states she lost one fallopian tube due to the surgery. She also has a history of a miscarriage. She denies any vaginal bleeding. No pain at this time. States she just took a test yesterday at home. No nausea or vomiting. No urinary symptoms. No diarrhea constipation. Has no other symptoms. She believes her lmp was beginning of may but may not have been as they are irregular. - History of Current Complaint Chief Complaint: EDOBProblems Stated Complaint: 4 WKS PREG/CRAMPS Time Seen by Provider: 06/23/18 15:42 Pain Intensity: 0 - Assessment Hx Now: No Hx Hysterectomy: No - Allergies/Home Medications Allergies/Adverse Reactions: Allergies Allergy/AdvReac Type Severity Reaction Status Date / Time acetaminophen [From Tylenol] Allergy Intermediate Hives Verified 06/23/18 15:41 ibuprofen Allergy Intermediate Hives Verified 06/23/18 15:41 naproxen Allergy Intermediate Swelling Verified 06/23/18 15:41 Penicillins Allergy Intermediate Hives Verified 06/23/18 15:41 Home Medications: Home Medications NK [No Home Medications Reported] 06/23/18 [History Confirmed 06/23/18] PMH/Surg Hx/FS Hx/Imm Hx Endocrine/Hematology History: Denies: Hx Diabetes, Hx Thyroid Disease Cardiovascular History: Denies: Hx Hypertension, Hx Pacemaker/ICD Respiratory History: Denies: Hx Asthma, Hx Chronic Obstructive Pulmonary Disease (COPD) GI History: Denies: Hx Ulcer History: Denies: Hx Renal Disease Sensory History: Denies: Hx Hearing Aid Psychiatric History: Denies: Hx Panic Disorder - Surgical History Surgery Procedure, Year, and Place: ectopic Infectious Disease History: No Infectious Disease History: Denies: Hx Hepatitis, Hx Human Immunodeficiency Virus (HIV), Traveled Outside the [place] in Last 30 Days - Family History Known Family History: Positive: None, Other Family History: Mother: Lupus, leukemia - Social History Alcohol Use: Occasionally Hx Substance Use: Yes Substance Use Type: Reports: Marijuana Substance Use Comment - Amount & Last Used: "not in the last 3 weeks though" Hx Tobacco Use: Yes Smoking Status (MU): Current Some Day Smoker Have You Smoked in the Last Year: No Review of Systems Negative: Fever Negative: Chest Pain Negative: Shortness Of Breath Positive: Abdominal Pain. Negative: Vomiting, Diarrhea, Nausea All Other Systems Reviewed And Are Negative: Yes Physical Exam - Physical Exam Triage Information Reviewed: Yes Vital Signs Reviewed: Yes Appearance: Positive: Well-Appearing Skin: Positive: Warm, Dry Head/Face: Positive: Normal Head/Face Inspection Eyes: Positive: Normal, Conjunctiva Clear ENT: Positive: Pharynx normal Respiratory/Lung Sounds: Positive: Clear to Auscultation, Breath Sounds Present Cardiovascular: Positive: Normal, RRR Abdomen Description: Positive: Nontender, Soft Bowel Sounds: Positive: Present Musculoskeletal: Positive: Normal Neurological: Positive: Normal Psychiatric: Positive: Normal Diagnostics - Vital Signs Vital Signs Temp Pulse Resp BP Pulse Ox 06/23/18 15:38 97.2 F 76 17 117/79 100 - Laboratory Result Diagrams: 06/23/18 15:50 06/23/18 15:50 Lab Statement: Any lab studies that have been ordered have been reviewed, and results considered in the medical decision making process. Course/Dx - Course Course Of Treatment: 33 year old female presents with abdominal pain for the past couple days. She states that pain is intermittent and located on her left side. She states that she has history of 2 ectopic pregnancies. She states last one occurred last year requiring surgery. the other one was manage medically. She states she lost one fallopian tube due to the surgery. She also has a history of a miscarriage. She denies any vaginal bleeding. No pain at this time. States she just took a test yesterday at home. No nausea or vomiting. No urinary symptoms. No diarrhea constipation. Has no other symptoms. On exam nontender abdomen. HCG is 112. this is too early to see anything on u/s so told needs to follow up with ob and have hcg repeated and u/s as needed. patient understand and agrees with plan. - Differential Diagnosis/HQI/PQRI: Threatened , Ectopic , Intrauterine - Diagnoses Provider Diagnoses: Discharge - Sign-Out/Discharge Documenting (check all that apply): Patient Departure - Discharge Plan Condition: Good Disposition: HOME Referrals: No Primary Care Phys,NOPCP [Primary Care Provider] - Additional Instructions: follow up with ob get lab work repeated in 48 hours or as instructed by ob Return to ED if develop fevers or any new or worsening symptoms - Billing Disposition and Condition Condition: GOOD Disposition: Home
[2018-06-23 16:01] LABS: ABS Basophils 0.1 10^3/ul (0-0.2); ABS Eosinophils 0.1 10^3/ul (0-0.6); ABS Lymphocytes 2.5 10^3/ul (1.0-4.8); ABS Monocytes 0.6 10^3/ul (0-0.8); ABS Neutrophils 3.8 10^3/ul (1.5-7.7); ABS Nucleated RBC 0 10^3/ul; Eosinophil % 0.7 % (0-6); Hematocrit 36 % (35-47); Hemoglobin 11.8 g/dl (12.0-16.0); Lymphocyte % 35.9 % (25-47); Mean Corpuscular HGB Conc 33 g/dl (31-36); Mean Corpuscular Hemoglobin 30 pg (27-31); Mean Corpuscular Volume 90 fL (80-97); Mean Platelet Volume 6.8 fL (7.4-10.4); Nucleated Red Blood Cells % 0; Platelet Count 260 10^3/ul (150-450); Red Blood Count 3.93 10^6/ul (4.00-5.40); Red Cell Distribution Width 15 % (10.5-15)
[2018-06-23 16:44] VITALS: BP 123/76
[2018-06-23 16:57] LABS: EGFR Non-African American 75.5 (>60)
== END 2018-06-23 16:43 | disposition home or self-care (01) ==
LOC: ED 15:12
DX: O26.891 Other specified pregnancy related conditions, first trimester (principal); Z3A.01 Less than 8 weeks gestation of pregnancy; Z88.6 Allergy status to analgesic agent; Z88.0 Allergy status to penicillin; Z72.0 Tobacco use
CPT/HCPCS: 36415; 80053; 84702; 85025; 99281

== ENCOUNTER 2018-10-06 13:45 | Emergency (ER) | payer OTHER ==
--- NOTE | 2018-10-06 13:53 | UC ---
Dental HPI - HPI Summary HPI Summary: 33 yo female presents with dental pain. She tells me that she has a "bad bridge " in the bottom right of her teeth. She gets infections here often. Over the last 2-3 days has had pain and swelling in the area and thinks she has developed an abscess. She is eating and drinking, but has mild pain. Denies fever or chills. - History of Current Complaint Stated Complaint: DENTAL ISSUE Time Seen by Provider: 10/06/18 13:53 Hx Obtained From: Patient Hx Last Menstrual Period: 01/13/18 Onset/Duration: Gradual Onset Severity: Mild Pain Intensity: 3 Pain Scale Used: 0-10 Numeric - Allergies/Home Medications Allergies/Adverse Reactions: Allergies Allergy/AdvReac Type Severity Reaction Status Date / Time acetaminophen [From Tylenol] Allergy Intermediate Hives Verified 10/06/18 13:56 ibuprofen Allergy Intermediate Hives Verified 10/06/18 13:56 naproxen Allergy Intermediate Swelling Verified 10/06/18 13:56 Penicillins Allergy Intermediate Hives Verified 10/06/18 13:56 PMH/Surg Hx/FS Hx/Imm Hx - Additional Past Medical History Additional PMH: None - Surgical History Surgical History: Yes Surgery Procedure, Year, and Place: ectopic - Family History Known Family History: Positive: Other Family History: Mother: Lupus, leukemia - Social History Occupation: Employed Full-time Lives: With Family Alcohol Use: Occasionally Substance Use Type: Marijuana Substance Use Comment - Amount & Last Used: "not in the last 3 weeks though" Smoking Status (MU): Current Some Day Smoker Have You Smoked in the Last Year: No Review of Systems All Other Systems Reviewed And Are Negative: Yes Constitutional: Positive: Negative Skin: Positive: Negative Eyes: Positive: Negative ENT: Positive: Dental Pain Respiratory: Positive: Negative Cardiovascular: Positive: Negative Gastrointestinal: Positive: Negative Neurovascular: Positive: Negative Neurological: Positive: Negative Psychological: Positive: Negative Physical Exam - Summary Physical Exam Summary: GENERAL: NAD. WDWN. No pain distress. SKIN: No rashes, sores, lesions, or open wounds. HEENT: Head: AT/NC Eyes: EOM intact. Conjunctiva clear without inflammation or discharge. Ears: Hearing grossly normal. TMs intact, no bulging, erythema, or edema. Nose: Nasal mucosa pink and moist. NTTP maxillary and frontal sinus. Throat: Posterior oropharynx without exudates, erythema, or tonsillar enlargement. Uvula midline. NECK: Supple. Nontender. No lymphadenopathy. CHEST: CTAB. No r/r/w. No accessory muscle use. Breathing comfortably and in no distress. CV: RRR. Without m/r/g. Pulses intact. Cap refill <2seconds NEURO: Alert. PSYCH: Age appropriate behavior. Triage Information Reviewed: Yes Vital Signs: Vital Signs: Temp Pulse Resp BP Pulse Ox 98.7 F 88 18 115/71 100 10/06/18 13:53 10/06/18 13:53 10/06/18 13:53 10/06/18 13:53 10/06/18 13:53 Vital Signs Reviewed: Yes Dental: Positive: Abscess @ - Tooth #30. Negative: Cervical Lymphadenopathy, Bleeding Procedures - Incision and Drainage Right Site: Right tooth #30 abscess Anesthesia: Topical Instrument(s): Needle - 22G Dental Complaint Course/Dx - Course Course Of Treatment: Tooth #30 abscess. The procedure was explained to the pt and all questions were answered. A time out was performed, witnessed, and signed. Cetacaine was used to anesthetize the dental abscess. A 22G needle was used to thaddeus the abscess and copious yellow purulent material was expressed. Pt tolerated procedure well. - Differential Dx/Diagnosis Provider Diagnosis: Dental abscess Discharge - Sign-Out/Discharge Documenting (check all that apply): Patient Departure All imaging exams completed and their final reports reviewed: No Studies - Discharge Plan Condition: Stable Disposition: HOME Prescriptions: Clindamycin Cap(NF) [Clindamycin Cap 300 mg Cap(NF)] 300 mg PO TID #21 cap Patient Education Materials: Dental Abscess (ED) Referrals: No Primary Care Phys,NOPCP [Primary Care Provider] - Additional Instructions: If you develop a fever, shortness of breath, chest pain, new or worsening symptoms - please call your PCP or go to the ED. - Billing Disposition and Condition Condition: STABLE Disposition: Home
[2018-10-06 13:56] VITALS: BP 115/71
[2018-10-06] MEDS ORDERED: Benzocaine/Butamben/Tetracain* SPRAY TOPICAL ONE (14:09)
== END 2018-10-06 14:24 | disposition home or self-care (01) ==
LOC: UCEAST 13:45
DX: K04.7 Periapical abscess without sinus (principal); F17.200 Nicotine dependence, unspecified, uncomplicated; Z88.0 Allergy status to penicillin; Z88.8 Allergy status to other drugs, medicaments and biological substances
CPT/HCPCS: 41800; 99212; A9270-GY; G0463

== ENCOUNTER 2018-12-26 18:02 | Emergency (ER) | payer MEDICAID, OTHER ==
--- NOTE | 2018-12-26 18:11 | UC ---
Dental HPI - HPI Summary HPI Summary: 33 yo female presents with dental abscess. She tells me that she has a dental bridge in her lower right teeth that she gets an abscess near a few times a year. I saw her for this a few months ago and she required I&D of the area. This time she says it has only been a day or two and "isn't that big yet". She was scheduled to see a dentist, but lost her insurance and was not able to see them. She is tolerating po well. Denies fever. - History of Current Complaint Stated Complaint: TOOTH ACHE Time Seen by Provider: 12/26/18 18:06 Hx Obtained From: Patient Hx Last Menstrual Period: 01/13/18 Onset/Duration: Sudden Onset Severity: Mild Pain Intensity: 3 Pain Scale Used: 0-10 Numeric - Allergies/Home Medications Allergies/Adverse Reactions: Allergies Allergy/AdvReac Type Severity Reaction Status Date / Time acetaminophen [From Tylenol] Allergy Intermediate Hives Verified 12/26/18 18:17 ibuprofen Allergy Intermediate Hives Verified 12/26/18 18:17 naproxen Allergy Intermediate Swelling Verified 12/26/18 18:17 Penicillins Allergy Intermediate Hives Verified 12/26/18 18:17 Home Medications: Home Medications Ibuprofen TAB* [Motrin TAB* 400 MG] 12/26/18 [History] PMH/Surg Hx/FS Hx/Imm Hx - Additional Past Medical History Additional PMH: None - Surgical History Surgical History: Yes Surgery Procedure, Year, and Place: ectopic - Family History Known Family History: Positive: None, Other Family History: Mother: Lupus, leukemia - Social History Lives: With Family Alcohol Use: Occasionally Substance Use Type: Marijuana Substance Use Comment - Amount & Last Used: "not in the last 3 weeks though" Smoking Status (MU): Current Some Day Smoker Have You Smoked in the Last Year: No Review of Systems All Other Systems Reviewed And Are Negative: Yes Constitutional: Positive: Negative Skin: Positive: Negative Eyes: Positive: Negative ENT: Positive: Dental Pain Respiratory: Positive: Negative Cardiovascular: Positive: Negative Neurovascular: Positive: Negative Neurological: Positive: Negative Psychological: Positive: Negative Physical Exam - Summary Physical Exam Summary: GENERAL: NAD. WDWN. No pain distress. SKIN: No rashes, sores, lesions, or open wounds. HEENT: Head: AT/NC Nose: Nasal mucosa pink and moist. NTTP maxillary and frontal sinus. Throat: Posterior oropharynx without exudates, erythema, or tonsillar enlargement. Uvula midline. NECK: Supple. Nontender. No lymphadenopathy. CHEST: No accessory muscle use. Breathing comfortably and in no distress. CV: Pulses intact. Cap refill <2seconds NEURO: Alert. PSYCH: Age appropriate behavior. Triage Information Reviewed: Yes Vital Signs: Vital Signs: Temp Pulse Resp BP Pulse Ox 99.1 F 88 16 128/78 100 12/26/18 18:11 12/26/18 18:11 12/26/18 18:11 12/26/18 18:11 12/26/18 18:11 Vital Signs Reviewed: Yes Dental: Positive: Percussion Tenderness @ - Tooth #30, Abscess @ - Tooth #30. Negative: Cellulitis @, Cervical Lymphadenopathy, Bleeding Dental Complaint Course/Dx - Course Course Of Treatment: Tooth #30 abscess. Will start her with clindamycin and have her return if does not improve with anbx alone for I&D treatment. - Differential Dx/Diagnosis Provider Diagnosis: Dental abscess Discharge - Sign-Out/Discharge Documenting (check all that apply): Patient Departure All imaging exams completed and their final reports reviewed: No Studies - Discharge Plan Condition: Stable Disposition: HOME Prescriptions: Clindamycin Cap(NF) [Clindamycin Cap 300 mg Cap(NF)] 300 mg PO TID #21 cap Clindamycin Cap(NF) [Clindamycin Cap 300 mg Cap(NF)] 300 mg PO TID #21 cap Patient Education Materials: Dental Abscess (ED) Referrals: Hermes Vaca MD [Primary Care Provider] - Additional Instructions: If you develop a fever, shortness of breath, chest pain, new or worsening symptoms - please call your PCP or go to the ED immediately. - Billing Disposition and Condition Condition: STABLE Disposition: Home
[2018-12-26 18:16] VITALS: BP 128/78
== END 2018-12-26 18:30 | disposition home or self-care (01) ==
LOC: UCEAST 18:02
DX: K04.7 Periapical abscess without sinus (principal); Z88.6 Allergy status to analgesic agent; Z88.0 Allergy status to penicillin; Z72.0 Tobacco use
CPT/HCPCS: 99211; G0463